=== PATIENT | male | born 1935 | race Caucasian/White ===

== ENCOUNTER → 2019-07-16 08:54 | Outpatient (REF) | payer MEDICARE, OTHER, SELFPAY | LOC: ANHLAB 08:54 | PROVIDERS: PCP Family Medicine; Visit Provider Nurse Practitioner | DX: C44.319 Basal cell carcinoma of skin of other parts of face (principal); C44.329 Squamous cell carcinoma of skin of other parts of face; D23.72 Other benign neoplasm of skin of left lower limb, including hip | CPT/HCPCS: 88305 ==

== ENCOUNTER → 2019-08-12 07:10 | Outpatient (REF) | payer MEDICARE, OTHER, SELFPAY | LOC: ANHLAB 07:10 | PROVIDERS: PCP Family Medicine; Visit Provider Nurse Practitioner | DX: C44.41 Basal cell carcinoma of skin of scalp and neck (principal); C44.329 Squamous cell carcinoma of skin of other parts of face | CPT/HCPCS: 88305; 88331 ==

== ENCOUNTER → 2020-01-14 08:25 | Outpatient (REF) | payer MEDICARE, OTHER, SELFPAY | LOC: ANHLAB 08:25 | PROVIDERS: PCP Family Medicine; Visit Provider Nurse Practitioner | DX: C44.329 Squamous cell carcinoma of skin of other parts of face (principal) | CPT/HCPCS: 88305 ==

== ENCOUNTER 2020-02-20 08:38 | Outpatient (CLI) | payer MEDICARE, OTHER, SELFPAY ==
--- NOTE | ~2020-02-20 | CT_ITS ---
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 The mA wa s adjusted according to patient size. Iterative reconstruction technique was employed. Exam dose: 12 10.66 mGy-cm total exam DLP. COMPARISON: 09/16/[address] brain FINDINGS: Vertebrobasilar calcification and tortuosity. Prominent bilateral carotid siphon internal c arotid artery calcifications. There is nonspecific diminished attenuation of the subcortical and periventricular cerebral white mat ter, likely due to chronic small vessel ischemic changes. There is moderately prominent cerebellar and central and cortical cerebral atrophy. No intracranial mass lesion or hemorrhage, midline shift or mass effect is evident. No cerebrovascula r accident is detected. No subdural or epidural hematoma is detected. The orbital contents are unremarkable. No fracture or bone destruction of the cranial vault. The mastoid air cells and included paranasal sinuses are unremarkable. IMPRESSION: Cerebral atherosclerosis and chronic small vessel ischemic changes of the cerebral white matter No acute intracranial finding Reviewed, dictated and finalized at Location A. Reviewed, dictated and finalized at location B. 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
--- NOTE | ~2020-02-20 | CT_ITS ---
EXAMINATION: CT soft tissue neck w con DATE: 02/20/2020 09:19 INDICATION: Squamous cell carcinoma of skin of other parts of face. TECHNIQUE: Computed tomography (CT) of the neck was performed with 75 mL Omnipaque-350 intravenous co ntrast. Automated exposure control and iterative reconstruction technique were employed. The dose-chip gth product was 630.60 mGy-cm. COMPARISON: Maxillofacial CT 09/16/2016 FINDINGS: The orbits are normal. There is skin thickening anterior to the left ear. There is a 2.2 x 1.6 cm mass in superficial left parotid gland with strands of soft tissue connecting to the skin lesi on. There is plaque in the proximal internal carotid arteries with less than 50% stenosis relative to normal distal artery lumen diameters. There is mild mucosal thickening in right maxillary sinus. The re is severe cervical spondylosis. There is mild scarring at the lung apices. A calcified right lung nodule is consistent with old granulomatous disease. IMPRESSION: 1. Skin thickening anterior to the left ear, consistent with squamous cell carcinoma and surgical peggy nges. 2. Left parotid mass, new from 09/16/2016, consistent with perineural spread of tumor versus nicki met astatic disease. Reviewed, dictated and finalized at location A. Y HUSBANDMAN IMPRESSION: 1. Skin thickening anterior to the left ear, consistent with squamous cell carc inoma and surgical changes. 2. Left parotid mass, new from 09/16/2016, consistent with perineural spread of tumor versus nicki metastatic disease.
[2020-02-20 09:08] LABS: Estimated Glomerular Filt Rate 45
== END 2020-02-20 08:39 | disposition home or self-care (01) ==
PROVIDERS: PCP Family Medicine; Visit Provider Surgery Plastic and Reconstructive Surgery
DX: C44.329 Squamous cell carcinoma of skin of other parts of face (principal); I67.2 Cerebral atherosclerosis
CPT/HCPCS: 70470; 70491; Q9967

== ENCOUNTER → 2020-11-10 08:31 | Outpatient (REF) | payer MEDICARE, OTHER, SELFPAY | LOC: ANHLAB 08:31 | PROVIDERS: PCP Family Medicine; Visit Provider Nurse Practitioner | DX: L85.9 Epidermal thickening, unspecified (principal) | CPT/HCPCS: 88305 ==

== ENCOUNTER → 2020-11-30 10:20 | Outpatient (REF) | payer MEDICARE, OTHER, SELFPAY | LOC: ANHLAB 10:20 | PROVIDERS: PCP Family Medicine; Visit Provider Nurse Practitioner | DX: C44.42 Squamous cell carcinoma of skin of scalp and neck (principal) | CPT/HCPCS: 88305; 88331 ==

== ENCOUNTER → 2021-04-15 14:11 | Outpatient (REF) | payer MEDICARE, OTHER, SELFPAY | LOC: ANHLAB 14:11 | PROVIDERS: PCP Family Medicine; Visit Provider Nurse Practitioner | DX: C44.41 Basal cell carcinoma of skin of scalp and neck (principal); C44.229 Squamous cell carcinoma of skin of left ear and external auricular canal; D04.4 Carcinoma in situ of skin of scalp and neck | CPT/HCPCS: 88305 ==

== ENCOUNTER → 2021-05-17 07:40 | Outpatient (REF) | payer MEDICARE, OTHER, SELFPAY | LOC: ANHLAB 07:40 | PROVIDERS: PCP Family Medicine; Visit Provider Nurse Practitioner | DX: C44.41 Basal cell carcinoma of skin of scalp and neck (principal); C44.229 Squamous cell carcinoma of skin of left ear and external auricular canal; C44.42 Squamous cell carcinoma of skin of scalp and neck; C44.219 Basal cell carcinoma of skin of left ear and external auricular canal | CPT/HCPCS: 88305; 88331 ==

== ENCOUNTER → 2021-07-13 08:42 | Outpatient (REF) | payer MEDICARE, OTHER, SELFPAY | LOC: ANHLAB 08:42 | PROVIDERS: PCP Family Medicine; Visit Provider Nurse Practitioner | DX: C44.42 Squamous cell carcinoma of skin of scalp and neck (principal) | CPT/HCPCS: 88305 ==

== ENCOUNTER → 2021-08-09 10:29 | Outpatient (REF) | payer MEDICARE, OTHER, SELFPAY | LOC: ANHLAB 10:29 | PROVIDERS: PCP Family Medicine; Visit Provider Nurse Practitioner | DX: C44.42 Squamous cell carcinoma of skin of scalp and neck (principal) | CPT/HCPCS: 88305; 88331 ==

== ENCOUNTER 2021-11-09 13:00 | Outpatient (NON) | payer MEDICARE, OTHER, SELFPAY | END 2021-11-09 13:01 | disposition home or self-care (01) | LOC: ANHLAB 11-11 07:30 | PROVIDERS: PCP Family Medicine; Visit Provider Nurse Practitioner | DX: D04.4 Carcinoma in situ of skin of scalp and neck (principal) | CPT/HCPCS: 88305 ==

== ENCOUNTER 2021-12-20 14:49 | Outpatient (NON) | payer MEDICARE, OTHER, SELFPAY | END 2021-12-20 14:50 | disposition home or self-care (01) | LOC: ANHLAB 12-27 14:50 | PROVIDERS: PCP Family Medicine; Visit Provider Nurse Practitioner | DX: C44.42 Squamous cell carcinoma of skin of scalp and neck (principal) | CPT/HCPCS: 88305; 88331 ==

== ENCOUNTER 2022-02-22 08:00 | Outpatient (NON) | payer MEDICARE, OTHER, SELFPAY | END 2022-02-22 08:01 | disposition home or self-care (01) | LOC: ANHLAB 02-23 13:22 | PROVIDERS: PCP Family Medicine; Visit Provider Nurse Practitioner | DX: C44.42 Squamous cell carcinoma of skin of scalp and neck (principal) | CPT/HCPCS: 88305 ==

== ENCOUNTER 2022-03-14 13:31 | Outpatient (NON) | payer MEDICARE, OTHER, SELFPAY | END 2022-03-14 13:32 | disposition home or self-care (01) | LOC: ANHLAB 13:32 | PROVIDERS: PCP Family Medicine; Visit Provider Nurse Practitioner | DX: C44.92 Squamous cell carcinoma of skin, unspecified (principal); C44.42 Squamous cell carcinoma of skin of scalp and neck | CPT/HCPCS: 88305; 88331; 88332 ==

== ENCOUNTER 2022-05-26 08:00 | Outpatient (NON) | payer MEDICARE, OTHER, SELFPAY | END 2022-05-26 08:01 | disposition home or self-care (01) | LOC: ANHLAB 05-27 11:34 | PROVIDERS: PCP Family Medicine; Visit Provider Nurse Practitioner | DX: C44.42 Squamous cell carcinoma of skin of scalp and neck (principal) | CPT/HCPCS: 88305 ==

== ENCOUNTER 2023-03-14 14:21 | Outpatient (NON) | payer MEDICARE, OTHER, SELFPAY | END 2023-03-14 14:22 | disposition home or self-care (01) | LOC: ANHLAB 03-15 14:24 | PROVIDERS: PCP Family Medicine; Visit Provider Nurse Practitioner | DX: C44.329 Squamous cell carcinoma of skin of other parts of face (principal) | CPT/HCPCS: 88305 ==

== ENCOUNTER 2025-02-03 11:00 | Emergency (ER) | payer MEDICARE, OTHER, SELFPAY ==
--- NOTE | ~2025-02-03 | CT_ITS ---
CT CERVICAL SPINE WITHOUT CONTRAST CLINICAL HISTORY: fall Technique: Axial images thoracic inlet to skull base Sagittal and coronal reformats. No contrast CT images acquired with automatic exposure control for dose reduction DLP: 326 mGy-cm Comparison: None Findings: No acute fracture or listhesis. Vertebral bodies normal height and alignment. Moderate degenerative changes. Disc spaces maintained. Prevertebral soft tissues within normal limits. Visualized lung apices: Clear. Visualized thyroid: Unremarkable. No enlarged cervical nodes. IMPRESSION: 1. No acute findings. Reviewed, dictated and finalized at location [facility]. [facility] IMPRESSION: 1. No acute findings.
--- NOTE | ~2025-02-03 | CT_ITS ---
CT HEAD NON-CONTRAST Clinical History: fall Comparison: 02/20/2020 Technique: Unenhanced axial images skull base to vertex Coronal, sagittal reformats CT images acquired with automatic exposure control for dose reduction DLP: 681 mGy-cm Findings: Age-related atrophy. Chronic white matter microvascular ischemic changes. Sulci, ventricles: Unremarkable. No intracerebral hemorrhage. No evidence acute territorial infarct. No mass effect, midline shift. Bony calvarium intact. Visualized paranasal sinuses: Clear. Mastoid air cells: Fluid left side. IMPRESSION: 1. No acute intracranial findings. Reviewed, dictated and finalized at location [facility]. [facility]
[2025-02-03 10:59] VITALS: BP 160/58; PULSE 56; RESP 21; TEMP 36.4; O2SAT 93
--- NOTE | 2025-02-03 12:58 | ED.FALL ---
HPI - Fall General Chief Complaint: Fall Stated Complaint: fall Time Seen by Provider: 02/03/25 11:42 History of Present Illness HPI Narrative: Patient presenting here after he tripped on a mat at a grocery store and fell, he is on blood thinners. No LOC, denies any complaints. Related Data Home Medications ?Medication ?Instructions ?Recorded ?Confirmed ?Last Taken ?Type simvastatin 20 mg tablet 20 mg PO DAILY 03/26/19 02/21/24 Unknown History cholecalciferol (vitamin D3) 50 50 mcg PO DAILY 04/14/20 02/21/24 Unknown History mcg (2,000 unit) capsule Allergies Allergy/AdvReac Type Severity Reaction Status Date / Time No Known Allergies Allergy Verified 08/13/24 08:35 Review of Systems Review of Systems: All systems reviewed & are unremarkable except as noted in HPI and below PMFSH Past Medical History Medical History Absence of cataract of right eye Absence of cataract of left eye Squamous cell carcinoma of parotid Chronic renal insufficiency, stage III (moderate) Hyperlipidemia, unspecified Mixed hyperlipidemia Paroxysmal atrial fibrillation 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 Surgical History Surgical History H/O abdominal aortic aneurysm repair Family History Family History Other Family history of Alzheimer's disease Social History Social History Smoking status: Never smoker Second hand tobacco smoke exposure: No Alcohol intake: never Substance use: never Substance use type: does not use Lack of Transportation: No Lack of Food: Never True Current Housing: I Do Not Have Housing Concerned About Future Housing: No Difficulty Paying Gas/Electric Bills: No Difficulty Paying for Meds: No Currently Unemployed: No Education: Master's Degree or Higher Difficulty w/ Childcare or Family Care: No Living arrangements: with family Occupation/Education: retired Gender identity (if verbalized by the patient): Male Spiritual care concerns: No Agree to blood products: Yes Exam Narrative: EXAMINATION OF ORGAN SYSTEMS/BODY AREAS: Constitutional: Vital signs per nursing GENERAL:[No acute distress, non-toxic appearing.] HEAD: Abrasions with very tiny superficial laceration above right eyebrow EYES: EOMI, conjunctiva normal ENT: Hearing grossly intact LUNGS: Nonlabored breathing. HEART: [Regular rate and rhythm] ABD: [Soft], [nontender to palpation] EXT: Normal range of motion SKIN: Facial abrasions with very tiny superficial laceration above right eyebrow NEURO: [Alert and oriented x 3. No gross focal sensory or strength deficits.] PSYCH: Normal affect Course Vital Signs Vital signs: Vital Signs Temperature 97.6 F 02/03/25 10:59 Pulse Rate 56 L 02/03/25 10:59 Respiratory Rate 21 H 02/03/25 10:59 Blood Pressure 160/58 H 02/03/25 10:59 Pulse Oximetry 93 02/03/25 10:59 Oxygen Delivery Room Air 02/03/25 10:59 Temperature 97.6 F 02/03/25 10:59 Pulse Rate 56 L 02/03/25 10:59 Respiratory Rate 21 H 02/03/25 10:59 Blood Pressure 160/58 H 02/03/25 10:59 Pulse Oximetry 93 02/03/25 10:59 Oxygen Delivery Room Air 02/03/25 10:59 Procedures Laceration Laceration 1: Date: 02/03/25 Time: 12:59 Site: face Side (If applicable): right Size (cm): 1 Description: linear Depth: simple, single layer Pre-repair: wound explored, irrigated and deep structures intact ====== Skin Level ====== Skin layer closed with: dermabond ====== Subcutaneous Layer ====== ====== Muscle Layer ====== ====== Tendon Layer ====== Laceration 2: Date: 02/03/25 Time: 13:02 Site: face Side (If applicable): right Size (cm): 1 Description: linear Depth: simple, single layer Pre-repair: wound explored, irrigated and deep structures intact ====== Skin Level ====== Skin layer closed with: dermabond ====== Subcutaneous Layer ====== ====== Muscle Layer ====== ====== Tendon Layer ====== MDM - Fall MDM Narrative Medical decision making narrative: Patient presents here after falling, hitting his head, he is on blood thinners. On exam he does have abrasions to his right forehead, with a couple of tiny lacerations. This is irrigated, closed, patient tolerated this well, stable for discharge with return precautions Discharge Plan Discharge Clinical Impression: Fall, Head injury Patient Disposition: Home Condition: Stable Instructions: Head Injury (ED), Skin Adhesive Care (ED) Additional Instructions: You can follow up with your PCP and come back to the ER for any further issues. Patient Language: Indonesian Prescriptions: No Action simvastatin 20 mg tablet 20 mg PO DAILY cholecalciferol (vitamin D3) 50 mcg (2,000 unit) capsule 50 mcg PO DAILY Eliquis 5 mg tablet 5 mg PO BID Qty: 180 3RF metoprolol succinate 25 mg tablet extended release 24 hr 25 mg PO DAILY Qty: 90 3RF Follow-up/Referrals: Jean Carlos Bennett MD [Primary Care Provider, Family Practice]
[2025-02-03] MEDS: TETANUS,DIPHTHERIA,AC PERTUSSIS ADULT (0.5 ML) BOOSTRIX IM (13:06)
--- OUTSIDE RECORDS SUMMARY | 2025-02-03 13:40 | XMS_ITS | Clinical Summary ---
Author Organization [facility] Address [address] [place] [address] Care Team Providers Care Laborer Laboratory Name Role Phone Christine Sanford MD Primary Care Provider [phone] Source Comments [facility],non-owned Affiliates and Associated Physician Practices is amultiple site organization consisting of ambulatory clinics and hospital sitesin [place], [place], [place] and [place]. This disclosure is being madepursuant to the Care Everywhere program and may not contain all information available regarding this patient. 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 Gender Identity Not on file Sexual Orientation Not on file Last Filed Vital Signs Vital Sign Reading Time Taken Comments Blood Pressure - - Pulse - - Temperature - - Respiratory Rate - - Oxygen Saturation - - Inhaled Oxygen Concentration - - Weight 90.7 kg (200 lb) 04/08/2010 9:00 AM 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 Height 185.4 cm (6' 1) 04/08/2010 9:00 AM 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 Body Mass Index 26.39 04/08/2010 9:00 AM 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 Plan of Treatment Health Maintenance Due Date Last Done Comments MEDICARE AWV 12 MONTHS 1936 DTAP/TDAP/TD VACCINES (1 - Tdap) 05/25/1955 PNEUMOCOCCAL VACCINE 50+ (1 of 1 - PCV) 1986 ZOSTER VACCINE (1 of 2) 1986 Respiratory Syncytial Virus (RSV) Vaccine Pt: or over 60 yrs (1 - 1-dose 75+ series) 05/25/2011 DEPRESSION SCREENING 03/06/2024 COVID-19 VACCINE (2024-2 6 season) 2024 INFLUENZA VACCINE (#1) 2024 HEPATITIS B VACCINE Aged Out No longe r eligible based on patient's age to complete this topic HIB VACCINE Aged Out No longer eligi ble based on patient's age to complete this topic HPV VACCINE Aged Out No longer eligi ble based on patient's age to complete this topic MENINGOCOCCAL (Group B) VACC INE SHARED DECISION-MAKING Aged Out No longer eligibl e based on patient's age to complete this topic MENINGOCOCCAL GROUPS A/C/Y/W VACCINE Aged Out No longer eligible b ased on patient's age to complete this topic Insurance MEDICARE AETNA MEDICARE AETNA Care Teams Laborer Laboratory Relationship Specialty Start Date End Date Christine Sanford MD [address] [place] [address] PCP - General 04/05/10
--- OUTSIDE RECORDS SUMMARY | 2025-02-03 13:40 | XMS_ITS | Encounter Summary ---
Author Organization [facility] Address [address] [place] [address] Care Team Providers Care Agent Based Modeler Name Role Phone Christine Sanford MD Primary Care Provider [phone] Jon Abbott MD Unavailable [phone] Solomon Varner MD Unavailable [phone] Richy Benjamin MD PhD Unavailable [phone] [facility] MD Unavailable [phone] Christine Hennessy LPN Unavailable Unavailab Sharlene Mcgraw MD Unavailable [phone] Too Harrell MD Unavailable [phone] Encounter Details Date Type Department Care Team (Late st Contact Info) Description 03/17/[address] [address] Eri Ray RN Social History Tobacco Use Types Packs/Day Years Used Date Smoking Tobacco: Former Cigarettes 1 [phone] - 7200 Smokeless Tobacco: Never Alcohol Use Standard Drinks/Week Comments Yes 2 (1 standard drink = 0.6 oz pur e alcohol) Sex and Gender Information Value Date Recorded Sex Assigned at Not on file Legal Sex Male 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 Gender Identity Not on file Sexual Orientation Not on file documented as of this encounter Functional Status * Question Answer Date of Assessment Author Arterial Line BP 97/80 03/17/2020 7:10 PM DRYWALL STRIPPER Kosta Lord RN * Green Fall Risk Question Answer Date of Assessment Author History of Falling 0 03/17/2020 9:00 PM Eri Hammond RN Secondary Diagnosis 15 03/17/2020 9:00 PM Eri Moe RN Ambulatory Aids 0 03/17/2020 9:00 PM Eri Aaron RN Intravenous Therapy/Heparin/Saline Lock 20 03/17/2020 9:00 PM Eri Hammond RN Gait/Transferring 0 03/17/2020 9:00 PM Eri Hammond RN Mental Status 0 03/17/2020 9:00 PM Eri Muñoz RN Auto Low/High - if selected proceed to interventions (retired) Low risk-patient immobile/non-ambula tory or infant 03/17/2020 11:35 AM Shilpa Aviles RN Morse Fall Risk Score (Score >= 45 places fall precaution order) 35 03/17/2020 9:00 PM Eri Hammond RN * Manuel Scale Question Answer Date of Assessment Author Sensory Perceptions 3 03/18/2020 7:40 AM Norma Randolph RN Moisture 4 03/18/2020 7:40 AM Norma Sam RN Activity 3 03/18/2020 7:40 AM Norma Sam RN Mobility 3 03/18/2020 7:40 AM Norma Sam RN Nutrition 3 03/18/2020 7:40 AM Norma Sam RN Friction and Shear 3 03/18/2020 7:40 AM Norma Sam RN Manuel Scale Score 19 03/18/2020 7:40 AM Norma Sam RN * Question Answer Date of Assessment Author BP Location Left arm 03/18/2020 11:53 AM Traci Osullivan BP Method Automatic 03/18/2020 11:53 AM Traci Osullivan MAP (mmHg) 52 03/18/2020 11:53 AM Traci Osullivan * Question Answer Date of Assessment Author Arterial Line MAP (mmHg) 87 03/17/2020 7:10 PM Kosta Helm RN * Fall Risk Interventions Question Answer Date of Assessment Author All Low Fall Interventions Applied Yes 03/17/2020 9:00 PM Eri Hammond RN All Moderate Fall Interventions Applied Yes 03/17/2020 9:00 PM Eri Hammond, R N All High Fall Risk Interventions Applied No 03/17/2020 9:00 PM Eri Hammond R N All High Risk Interventions EXCEPT: Bed alarm;Chair alarm 03/17/2020 9:00 PM Eri Hammond RN Additional Interventions Applied Over-bed table on non-exit side 03/17/2020 9:00 PM Eri Hammond RN Reason For Exception(s) uses call light 03/17/2020 9:0 0 PM Eri Hammond RN * Pressure Injury Prevention Question Answer Date of Assessment Author Pressure Ulcer Prevention Interventions Keep skin clean and dry (Sensory Perception/Moisture ) 03/18/2020 7:40 AM Norma Sam RN * Integumentary Question Answer Date of Assessment Author Skin Color Appropriate for ethnicity 03/18/2020 7:40 AM Norma Sam RN Skin Condition/Temp Warm;Dry 03/18/2020 7 :40 AM Norma Sam RN Skin Integrity Surgical incision 03/18/2020 7:4 0 AM Norma Sam RN Skin Turgor Non-tenting 03/17/2020 9:00 PM Eri Hammond RN Integumentary Additional Assessments Yes-Manuel 03/17/2020 9:00 PM Eri Hammond RN Integumentary (WDL) X 03/18/2020 7 :40 AM Norma Sam RN Skin Location L neck/face 03/18/2020 7:40 AM Norma Sam RN * Manuel Scale Question Answer Date of Assessment Author Manuel Scale Used Manuel 03/17/2020 11:35 AM Shilpa Aviles RN * Question Answer Date of Assessment Author Facial Edema No pitting 03/17/2020 9:00 PM Eri Saavedra RN Edema Facial 03/17/2020 9:00 PM Eri Saavedra RN * Question Answer Date of Assessment Author BP Location Left arm 03/18/2020 11:53 AM Traci Osullivan BP Method Automatic 03/18/2020 11:53 AM Traci Osullivan * Question Answer Date of Assessment Author Bed In Lowest Position Yes 03/18/2020 1:00 PM Yadira Molina Bed Wheels Locked Yes 03/18/2020 1:00 PM Yadira Molina * Fall Risk Interventions Question Answer Date of Assessment Author All Low Fall Interventions Applied Yes 03/17/2020 9:00 PM Eri Hammond RN All Moderate Fall Interventions Applied Yes 03/17/2020 9:00 PM Eri Hammond R N All High Fall Risk Interventions Applied No 03/17/2020 9:00 PM Eri Hammond R N All High Risk Interventions EXCEPT: Bed alarm;Chair alarm 03/17/2020 9:00 PM Eri Hammond RN Additional Interventions Applied Over-bed table on non-exit side 03/17/2020 9:00 PM Eri Hammond RN Reason For Exception(s) uses call light 03/17/2020 9:0 0 PM Eri Hammond RN * Question Answer Date of Assessment Author Hygiene Bathed/showered with chlorhexidine gluconate (CHG) 03/18/2020 9:00 AM Yadira Molina Hygiene Level of Assistance Independent 03/18/2020 9:00 AM Yadira Molina * ADL Screening Question Answer Date of Assessment Author Patient's Vision Adequate to Safely Complete Daily Activities Yes 03/17/2020 9:00 PM Eri Muñoz RN Patient's Judgement Adequate to Safely Complete Daily Activities Yes 03/17/2020 9:00 PM Eri Muñoz RN Patient's Memory Adequate to Safely Complete Daily Activities Yes 03/17/2020 9:00 PM Eri Muñoz RN Patient Able to Express Needs/Desires Yes 03/17/2020 9:00 PM Eri Hammond RN Dressing Independent 03/17/2020 9:00 PM Eri Saavedra RN Grooming Independent 03/17/2020 9:00 PM Eri Saavedra RN Feeding Independent 03/17/2020 9:00 PM Eri Saavedra RN Bathing Independent 03/17/2020 9:00 PM Eri Saavedra RN Toileting Independent 03/17/2020 9:00 PM Eri Saavedra RN In/Out Bed Independent 03/17/2020 9:00 PM Eri Saavedra RN Walks in Home Independent 03/17/2020 9:00 PM Eri Muñoz RN Weakness of Legs None 03/17/2020 9:00 PM Eri Pierson RN Weakness of Arms/Hands None 03/17/2020 9:00 PM Eri Hammond RN Hearing - Right Ear Functional 03/17/2020 9:00 PM CS T Eri Ray RN Hearing - Left Ear Functional 03/17/2020 9:00 PM Eri Hammond RN Dominant hand? Right 03/17/2020 9:00 PM Eri Rios RN Decline in ADLs in last 2 weeks? No 03/17/19 21 9:00 PM Eri Hammond RN * Therapy Consults Question Answer Date of Assessment Author PT Evaluation Needed 2 03/17/2020 9:00 PM Eri Ortiz RN OT Evaluation Needed 2 03/17/2020 9:00 PM Eri Ortiz RN BURRING MACHINE OPERATOR Evaluation Needed 2 03/17/2020 9:00 PM Eri Hammond RN * Assistive Devices Question Answer Date of Assessment Author Assistive Devices/DME Dentures upper;Den tures lower 03/17/2020 9:00 PM Eri Hammond RN documented as of this encounter Mental Status * Question Answer Entry Date Author Level of Consciousness Alert 7:40 AM Norma Sam RN Orientation Oriented X4 (person, place, time, situation) 03/18/2020 7:40 AM Norma Sam RN Neuro (WDL) WDL 03/18/2020 7:40 AM DRYWALL STRIPPER Norma Calderon RN * Question Answer Entry Date Author Neuro (WDL) X 03/17/2020 7:00 PM DRYWALL STRIPPER [place] [employer], Kosta Kee, BURT documented in this encounter Plan of Treatment Not on file documented as of this encounter Visit Diagnoses Not on filedocumented in this encounter Care Teams Agent Based Modeler Relationship Specialty Start Date End Date Christine aSnford MD PCP - General 08/28/14 Jon Abbott MD Consulting Physician Otolaryngology 03/28/20 10/02/21 Solomon Varner MD Consulting Physician Cardiology 04/01/20 Richy Benjamin MD PhD Consulting Physician Radiation Oncology 04/15/20 [facility] [address] [place] [address] Sand Blaster Plastic Surgery 12/08/21 Christine Hennessy LPN [address] [place] [address] [place] [address] Sand Blaster Plastic Surgery 12/08/21 Sharlene Gleason MD [address] [place] [address] Referring Physician Dermatology 06/05/23 Too Harrell MD [address] [place] [address] Referring Physician Dermatology 06/26/23 documented as of this encounter
--- OUTSIDE RECORDS SUMMARY | 2025-02-03 13:40 | XMS_ITS ---
Author Organization [facility] [address] Address [address] [place] [address] Care Team Providers Care Financial Assistance Specialist Name Role Phone Christine Sanford MD Primary Care Provider [phone] Solomon Varner MD Unavailable Richy Benjamin MD PhD Unavailable [phone] [facility] Unavailable [phone] Christine Hennessy LPN Unavailable Unavailab Sharlene Mcgraw MD Unavailable [phone] Too Harrell MD Unavailable [phone] Active Problems Problem Noted Date Diagnosed Date Stage 3b chronic kidney disease 12/31/2024 VIPUL (acute kidney injury) 03/29/2023 Squamous cell carcinoma, scalp/neck 07/04/2022 Nonrheumatic tricuspid valve regurgitation 02/22 Mixed hyperlipidemia 08/18/2021 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 04/17/2020 Mixed conductive and sensori neural hearing loss of left ear with restricted hearing of right ear 04/17/2020 Squamous cell carcinoma, face 03/31/2020 Overview (03/31/2020): Added automatically from request for surgery [id number] 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, pN3(U), cM0) - Signed by Richy Benjamin MD PhD on 03/27/2020 Mass of neck 03/02/2020 Overview (03/02/2020): Added automatically from request for surgery [id number] 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 S/P AAA repair using straight graft 07/04/2016 Overview (07/29/2016): S/P repair of abdominal aortic aneurysm using straight graft Chronic kidney disease, stage 2 (mild) 7 Overview (07/29/2016): CKD (chronic kidney disease) stage 2, GFR 60-89 ml/min Nonrheumatic mitral valve regurgitation 10/30/19 16 Overview (06/10/2016): Non-rheumatic mitral regurgitation Pulmonary hypertension 10/30/2015 Overview (06/10/2016): Pulmonary HTN Chronic atrial fibrillation 10/30/2015 Overview (06/10/2016): Chronic atrial fibrillation Chronic anticoagulation 10/30/2015 Overview (06/10/2016): Chronic anticoagulation Current Treatment and Therapy Plans No current plan information found. Past Treatment and Therapy Plans Oncology Chemotherapy Treatment Plan Name Start Date Discontinue Date Treatment Medications Discontinue Reason Plan Provider Cycles Pembrolizumab 21 Day Cycles 07/08/2022 07/30/2024 pembrolizumab (KEYTRUDA)pembr olizumab (KEYTRUDA) IVPB in 100 mL Therapy Complete Asael Reese MD 30 of 30 cycles started Radiation Treatments * Course [id number]/04/2020 - 06/16/2020 Treatment Period Energy Fraction Dose Fractions Total Dose Plans Planned LT HEAD_NECK 05/04/2020 - 06/16/2020 200 32 / 6,600 Reference Points Delivered [id number] 05/04/2020 - 06/16/2020 6,400 Lifetime Dose Tracking * Chemical Lifetime Dose Automatic Entry Manual Entr y DLP 18,013 mGycm 18,013 mGycm 0 mGycm Resolved Problems Problem Noted Date Diagnosed Date Resolved Date Dyslipidemia 10/30/2015 08/18/2021 Overview (06/10/2016): Dyslipidemia
--- OUTSIDE RECORDS SUMMARY | 2025-02-03 13:40 | XMS_ITS | Clinical Summary ---
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 Name Role Phone Christine Sanford MD Primary Care Provider [phone] Solomon Varner MD Unavailable Richy Benjamin MD PhD Unavailable [phone] [facility] Unavailable [phone] Christine Hennessy LPN Unavailable Unavailab Sharlene Mcgraw MD Unavailable [phone] Too Harrell MD Unavailable [phone] Allergies No known active allergies Medications cholecalciferol (VITAMIN D-3) 1,000 unitIndications :supplement Take 1 tablet/capsu le (1,000 Units total) by mouth every morning Active metoprolol XL (TOPROL-XL) 25 mg extended release tablet Take 1 tablet (25 mg total) by mouth daily 03/17/2022 Active apixaban (Eliquis) 5 mg tablet Take 1 tablet (5 mg total) by mouth 2 (two) times a day 180 tablet 3 01/09/2024 Active simvastatin (ZOCOR) 20 mg tablet TAKE 1 TABLET BY MOUTH EVERY DAY AT NIGHT 90 tablet 3 11/07/2024 Active Active Problems Problem Noted Date Diagnosed Date [...] (03/31/2020): Added automatically from request for surgery [id number] 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, pN3(U), cM0) - Signed by Richy Benjamin MD PhD on 03/27/2020 Mass of neck 03/02/2020 Overview (03/02/2020): Added automatically from request for surgery [id number] 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 [...] Chronic anticoagulation 10/30/2015 Overview (06/10/2016): Chronic anticoagulation Resolved Problems Problem Noted Date Diagnosed Date Resolved Date Dyslipidemia 10/30/2015 08/18/2021 Overview (06/10/2016): Dyslipidemia Encounters Date Type Department Care Team Description 12/31/2024 12:00 PM CDT Office Visit [facility] [address] [place] [address] Floor 5 [place] [address] Bruno Tse MD Squamous cell carcinoma, scalp/neck (Primary Dx); Stage 3b chronic kidney disease (HCC); Pulmonary hypertension (HCC) 12/24/2024 Orders Only [facility] Scanning, Provider 12/23/2024 9:00 AM CDT [facility] [address] [place] [address] 6 [place] [address] Asael Reese MD Cancer of parotid gland (HCC); Squamous cell carcinoma, face; Squamous cell carcinoma of head and neck 12/23/2024 8:15 AM CDT Lab [facility] - [facility] [address] [place] [address] 6 [place] [address] Cancer of parotid gland (HCC); Squamous cell carcinoma of head and neck 12/23/2024 8:00 AM CDT Lab [facility] [address] [place] [phone] Cancer of parotid gland (HCC); Squamous cell carcinoma of head and neck 12/23/2024 Telephone [facility] [address] [place] [address] 6 [place] [address] Brittani Hernandez RN 12/18/2024 Telephone [facility] [address] [place] [address] 5 [place] [address] Michelle Key RN 12/12/2024 10:59 AM CDT - 12/12/2024 11:59 PM CDT Hospital Encounter [facility] [place] [address] [facility] [place] 8 [place] [address] Cancer of parotid gland (HCC); Squamous cell carcinoma of head and neck Discharge Disposition: Discharge to home or self care 12/12/2024 10:45 AM CDT - 12/12/2024 11:59 PM CDT Hospital Encounter [facility] [place] [address] [facility] 8 [place] [address] Cancer of parotid gland (HCC); Squamous cell carcinoma, face; Squamous cell carcinoma of head and neck Discharge Disposition: Discharge to home or self care 12/10/2024 Telephone [facility] [address] [place] [address] Sophie Irwin MS from Last 3 Months Immunizations Immunization Administration Dates Next Due Influenza, Quad, Adjuvantate d, Intramuscular 11/13/2019 Influenza, Quadrivalent, Hig h Dose, Preservative Free, Intrr 11/03/2020 Influenza, Trivalent, High D ose, Split, Preservative Free, Intramuscular 11/12/2018,12/04/2017,12/03/2017,12/05,11/29/2015,11/17/2014 Influenza, Trivalent, IM (MDV) 12/18/2021,2020,11/13/2019 Pfizer SARS-CoV-2 Monovalent Vaccination (12+ Yrs) PURPLE 12/04/2020,05/01/2020,04/10/2020 Pneumococcal Conjugate 7-Valent 11/12/2018 Pneumococcal Conjugate PCV 13 06/26/2015 Pneumococcal Polysaccharide PPV23 06/16/2016 Tdap 09/16/2016 Surgical History Surgery Date Site/Laterality Comments OTHER SURGICAL HISTORY Aortic Aneurysm Repair, AAA Endograft CARDIAC STENT PLACEMENT Aortic stent NOSE SURGERY COLONOSCOPY Medical History Medical History Date Comments Hypercholesterolemia High choles terol Hx Other Medical Chronic atrial fibrillation Hx Other Medical Abdominal Aorti c Aneurysm Hx Other Medical BPH- pt straigh t caths Cancer (HCC) 2000 A-fib (HCC) Skin cancer Family History Medical History Relation Name Comments No Known Problems Father No Known Problems Mother Relation Name Status Comments Father Mother Social History Tobacco Use Types Packs/Day Years Used Date Smoking Tobacco: Former Cigarettes 1 955 - 4898 Smokeless Tobacco: Never Tobacco Cessation:Counseling Given: Not Answered Alcohol Use Standard Drinks/Week Comments Yes 2 (1 standard drink = 0.6 oz pur e alcohol) Sex and Gender Information Value Date Recorded Sex Assigned at Not on file Legal Sex Male 12:09 AM [employer] O[employer] Gender Identity Not on file Sexual Orientation Not on file Last Filed Vital Signs Vital Sign Reading Time Taken Comments Blood Pressure 90/57 12/23/2024 8:50 AM CDT Pulse 56 12/23/2024 8:50 AM CDT Temperature 36.3 C (97.3 F) 12/23/2024 8:50 AM CDT Respiratory Rate 18 12/23/2024 8:50 AM CDT Oxygen Saturation 93% 12/23/2024 8:50 AM CDT Inhaled Oxygen Concentration - - Weight 88.5 kg (195 lb 3.2 oz) 12/31/2024 11:36 AM CDT Height 182.9 cm (6') 10/14/2024 8:28 AM CDT Body Mass Index 26.47 10/14/2024 8:28 AM CDT Plan of Treatment Health Maintenance Due Date Last Done Comments Depression Screening 1936 Hepatitis B Screening 1953 Zoster Vaccine (1 of 2) 1986 Well Visit 65+ 2001 Fall Risk Assessment 04/03/2021 04/03/2020 Covid-19 Vaccine (2024-2 6 season) 2024 12/04/2020, 05/01/2020, 04/10/2020 DTaP/Tdap/Td Vaccine (2 - Td or Tdap) 09/16/2026 09/16/2016 Pneumococcal vaccine 65+ Completed 019, 06/16/2016, 06/26/2015 Influenza Vaccine Completed 12/20/2024, , 11/04/2020, Additional history exists Medical Devices Implanted Type Area Boiler Room Operator Device Identifier Shelf Expiration Date Model / Serial / Lot [employer] [id number] Berghaus/Schrom Chain Flexible Implant .8gm Eyelid [place] - [id number] Implanted:Qty: 1 on 04/03/2020 by Brittani Whitmore MD at [facility] Left: Eye [employer] [id number] / / Procedures Procedure Name Priority Date/Time Associated Diagnosis Comments SCAN - PATHOLOGY 12/24/2024 10:0 4 AM CDT EGFR Routine 12/23/2024 8:34 AM CDT 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 T4, FREE Routine 12/23/2024 8:34 AM CDT 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 DIFFERENTIAL AUTO Routine 12/23/2024 8:3 4 AM CDT 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 CBC WITH AUTO DIFFERENTIAL Routine 12/23/2024 8:34 AM CDT 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 COMPREHENSIVE METABOLIC PANEL Routine 12/23/2024 8:34 AM CDT 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 THYROID FUNCTION CASCADE Routine 12/23/2024 8:34 AM CDT 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 LACTATE DEHYDROGENASE Routine 12/23/2024 8:34 AM CDT 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 73 m2 Comment: Interpretive Data Reference Interval Normal >/= 90 mL/min/1.73m2 Mildly decreased* 60 - 89 mL/min/1.73m2 Mildly to moderately decreased 45 - 59 mL/min/1.73m2 Moderately to severely decreased 30 - 44 mL/min/1.73m2 Severely decreased 15 - 29 mL/min/1.73m2 Kidney Failure < 15 mL/min/1.73m2 *Relative to young adult level Estimated glomerular filtration rate is determined by the 2021 CKD-EPI equation recommended by the National Kidney Foundation (A Unifying Approach to GFR Estimation: Recommendations of the NKF-ASK Task Force on Reassessing the Inclusion of Race in Diagnosing Kidney Disease, JASN 2020). The CKD-EPI equation should not be used for patients with unstable renal function and has not been validated in children and those over 70. Current interpretive data was last reviewed 2021. Blood 12/23/2024 8:34 AM CDT 12/23/2024 8:45 AM CDT us Asael Reese MD LAB BLOOD ORDERABLES Final Res ult KARRI ACOSTA [facility] [place] [address] * (ABNORMAL) Differential, auto (12/23/2024 8:34 AM CDT) Neutrophil abs 5.85 1.50 - 6.50 K/cumm Comment:Testing performed by : [facility], [address] [place] [phone] Lymphocyte abs 1.23 0.80 - 3.30 K/cumm KARRI ACOSTA Comment:Testing performed by : [facility], [address] [place] [phone] Monocyte abs 0.84(H) 0.20 - 0.80 K/cumm KARRI BJ Comment:Testing performed by : [facility], [address] [place] [phone] Eosinophil abs 0.21 0.00 - 0.50 K/cumm CERSTEVE ACOSTA Comment:Testing performed by : [facility], [address] [place] [phone] Basophil abs 0.04 0.00 - 0.10 K/cumm CERSTEVE BJ Comment:Testing performed by : [facility], [address] [place] [phone] Neutrophil pct 71.6 % KARRI ACOSTA Comment: Interpretive Data Percent cell count reference ranges are not reported, since discordance with absolute values may lead to misinterpretation of CBC data. Current Interpretive Data was last revised on 2017. Testing performed by: [facility], [address] [place] [phone] Lymphocyte pct 15.0 % CERSTEVE BJ Comment: Interpretive Data Percent cell count reference ranges are not reported, since discordance with absolute values may lead to misinterpretation of CBC data. Current Interpretive Data was last revised on 2017. Testing performed by: [facility], [address] [place] [phone] Monocyte pct 10.3 % CERSTEVE ACOSTA Comment: Interpretive Data Percent cell count reference ranges are not reported, since discordance with absolute values may lead to misinterpretation of CBC data. Current Interpretive Data was last revised on 2017. Testing performed by: [facility], [address] [place] [phone] Eosinophil pct 2.6 % CERSETVE ACOSTA Comment: Interpretive Data Percent cell count reference ranges are not reported, since discordance with absolute values may lead to misinterpretation of CBC data. Current Interpretive Data was last revised on 2017. Testing performed by: [facility], [address] [place] [phone] Basophil pct 0.5 % CERSTEVE ACOSTA Comment: Interpretive Data Percent cell count reference ranges are not reported, since discordance with absolute values may lead to misinterpretation of CBC data. Current Interpretive Data was last revised on 2017. Testing performed by: [facility], [address] [place] [phone] Blood 12/23/2024 8:34 AM CDT 12/23/2024 8:43 AM CDT us Asael Reese MD LAB BLOOD ORDERABLES Final Res ult KARRI ACOSTA [facility] Department [place] [address] * (ABNORMAL) Thyroid Function Moore (12/23/2024 8:34 AM CDT) TSH 6.72(H) 0.30 - 4.20 mcIUnit/mL Blood 12/23/2024 8:34 AM CDT 12/23/2024 8:45 AM CDT us Asael Reese MD LAB BLOOD ORDERABLES Final Res ult KARRI ACOSTA [facility] [place] [address] * (ABNORMAL) CBC with auto differential (12/23/2024 8:34 AM CDT) [facility] WBC 8.18 3.80 - 9.90 K/cumm Comment:Testing performed by : [facility], [address] [place] [address] Hgb 16.3 13.0 - 17.5 g/dL KARRI ACOSTA Comment:Testing performed by : [facility], [address] [place] [address] Hct 49.5 38.9 - 50.3 % CERSTEVE ACOSTA Comment:Testing performed by : [facility], [address] [place] [address] Plt 240 150 - 400 K/cumm KARRI ACOSTA Comment:Testing performed by : [facility], [address] [place] [address] MPV 7.3 6.8 - 10.4 fL KARRI ACOSTA Comment:Testing performed by : [facility], [address] [place] [address] RBC 5.11 4.30 - 5.80 M/cumm KARRI BJ Comment:Testing performed by : [facility], [address] [place] [address] MCV 96.9(H) 81.3 - 96.4 fL KARRI ACOSTA Comment:Testing performed by : [facility], [address] [place] [address] MCH 31.9 27.1 - 33.3 pg CERSTEVE ACOSTA Comment:Testing performed by : [facility], [address] [place] [phone] MCHC 32.9 32.3 - 35.7 g/dL KARRI [facility] Comment:Testing performed by : [facility], [address] [place], [place] [phone] RDW CV 15.4(H) 11.1 - 14.9 % KARRI ACOSTA Comment:Testing performed by : [facility], [address] [place] [phone] NRBC abs 0.00 0.00 - 0.01 K/cumm KARRI [facility] Comment:Testing performed by : [facility], [address] [place] [phone] Blood 12/23/2024 8:34 AM CDT 12/23/2024 8:43 AM CDT Asael Reese MD LAB BLOOD ORDERABLES Final Res ult Performing Organization Address City/[facility] Co de Phone Number [facility] [place] [address] * T4, free (12/23/2024 8:34 AM CDT) Pathologist [facility] Free T4 1.02 0.90 - 1.70 ng/dL Blood 12/23/2024 8:34 AM CDT 12/23/2024 8:45 AM CDT Narrative KARRI [facility] - 12/23/2024 9:47 AM CDT This test was reflexed from a TSH result. Asael Reese MD LAB BLOOD ORDERABLES Final Res ult [facility] [place] [address] * Lactate dehydrogenase (LD) (12/23/2024 8:34 AM CDT) Pathologist [facility] Lactate dehydrogenase (LDH) 223 100 - 250 Units/L Blood 12/23/2024 8:34 AM CDT 12/23/2024 8:45 AM CDT us Asael Reese MD LAB BLOOD ORDERABLES Final Res ult [facility] Department [place] [address] * (ABNORMAL) Comprehensive metabolic panel (12/23/2024 8:34 AM CDT) Pathologist [facility] Sodium 141 135 - 145 mmol/L Potassium, pl 5.3(H) 3.3 - 4.9 mmol/L [facility] Chloride 106 97 - 110 mmol/L [facility] CO2 27 22 - 32 mmol/L [facility] Anion gap 8 2 - 15 mmol/L [facility] BUN 20 6 - 25 mg/dL [facility] Creatinine 1.34(H) 0.80 - 1.30 mg/dL [facility] Glucose 96 70 - 199 mg/dL [facility] Comment: Interpretive Data Fasting glucose >/= 126 mg/dl is diagnostic for diabetes. Fasting is defined as no caloric intake for at least 8 hours. Fasting glucose between 100 mg/dl to 125 mg/dl is diagnostic of prediabetes. In a patient with classic symptoms of hyperglycemia or hyperglycemic crisis, a random glucose >/= 200 mg/dl is diagnostic for diabetes. In the absence of unequivocal hyperglycemia, results should be confirmed by repeat testing. The classification and Diagnosis of Diabetes Diabetes Care 202; 46: S19-S40. Current interpretive data was last revised 2022. Calcium 9.9 8.5 - 10.3 mg/dL [facility] Bilirubin, total 0.9 0.1 - 1.2 mg/dL [facility] Protein, pl 8.0 6.5 - 8.5 g/dL [facility] Albumin 4.0 3.5 - 5.0 g/dL [facility] Alk phos 114 40 - 130 Units/L [facility] ALT 8 7 - 55 Units/L [facility] AST 24 10 - 50 Units/L [facility] Comment:Hemolyzed; result ma y be falsely elevated Blood 12/23/2024 8:34 AM CDT 12/23/2024 8:45 AM CDT us Asael Reese MD LAB BLOOD ORDERABLES Final Res ult [facility]RI [facility] [place] [address] * CT Head Neck Soft Tissue W Contrast (12/12/2024 11:44 AM CDT) Anatomical Region Laterality Modality Head and Neck N/A Computed Tomogra phy 12/12/2024 4:35 PM CDT Impressions 12/12/2024 5:56 PM CDT 1. Multiple foci of skin thickening, as described above. Recommend correlation with direct examinations. 2. No intracranial metastatic disease. 3. Left parotidectomy changes without cervical lymphadenopathy. 4. Please see dedicated CT chest, abdomen, and pelvis for evaluation of the thorax Dictated by: King Doan MD The radiology attending physician has personally reviewed this study, and had reviewed and/or edited this written report and agrees with it. Electronically signed by: Willie Anders MD, PHD Narrative 12/12/2024 5:56 PM CDT EXAMINATION: 1. CT head with contrast 2. 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 He was most recently on pembrolizumab with cycle 30 on 08/19/2024. TECHNIQUE: CT of the head was performed with images acquired from skull base to vertex with intravenous contrast. CT of the neck was performed according to the standard protocol with intravenous contrast. Contrast information: 114 mL Optiray-350 IV COMPARISON: CT head and neck 08/15/2024. FINDINGS: HEAD: Postsurgical changes of left scalp resection with skin thickening overlying the left parietal and frontal scalp. There are multiple foci of skin thickening, referenced with arrows on series 25. 1. Left parietal scalp, image 53 2. Left frontal scalp, image 52 3. Left frontoparietal scalp, image 43 4. Left parietal scalp, image 36 5. Left frontal scalp, image 30 6. Right frontal scalp, 2 lesions, image 24 7. Right frontal scalp, image 22 There is no acute intracranial hemorrhage, within the limitations of contrast. Global parenchymal volume loss with ex vacuo dilatation of the ventricular system, similar to prior. No mass effect or midline shift is present. Ill-defined periventricular white matter hypodensities, likely sequelae of chronic small vessel disease. The fuentes-white matter differentiation is normal. Bilateral lens replacements. Stable left mastoid effusion. Mucosal thickening of the right greater than left maxillary sinuses. No fractures are identified. There is no abnormal contrast enhancement. Intracranial atherosclerotic disease. NECK: Streak artifacts limits evaluation of the anterior mouth. Postsurgical changes of left cervical neck dissection and left parotidectomy. No suspicious enhancement to suggest disease recurrence in the neck. Scattered subcentimeter lymph nodes are seen in the neck. None are pathologically enlarged or abnormally enhancing. The muscles of the neck are normal. Bilateral carotid bulb calcified and noncalcified atherosclerosis. Scattered atherosclerosis of the thoracic aorta and branch vessels. Fascial planes are preserved and the deep spaces of the neck are normal. The visualized airway is widely patent. The base of the skull and the temporal bones are normal. The visualized portions of the orbits are normal. Multilevel degenerative disc and joint disease of the cervical spine. No high-grade spinal canal stenosis. Please see concurrently acquired dedicated CT chest, abdomen, and pelvis for evaluation of the thorax. Procedure Note Willie Anders MD PhD - 12/12/2024 EXAMINATION: 1. CT head with contrast 2. 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 He was most recently on pembrolizumab with cycle 30 on 08/19/2024. TECHNIQUE: CT of the head was performed with images acquired from skull base to vertex with intravenous contrast. CT of the neck was performed according to the standard protocol with intravenous contrast. Contrast information: 114 mL Optiray-350 IV COMPARISON: CT head and neck 08/15/2024. FINDINGS: HEAD: Postsurgical changes of left scalp resection with skin thickening overlying the left parietal and frontal scalp. There are multiple foci of skin thickening, referenced with arrows on series 25. 1. Left parietal scalp, image 53 2. Left frontal scalp, image 52 3. Left frontoparietal scalp, image 43 4. Left parietal scalp, image 36 5. Left frontal scalp, image 30 6. Right frontal scalp, 2 lesions, image 24 7. Right frontal scalp, image 22 There is no acute intracranial hemorrhage, within the limitations of contrast. Global parenchymal volume loss with ex vacuo dilatation of the ventricular system, similar to prior. No mass effect or midline shift is present. Ill-defined periventricular white matter hypodensities, likely sequelae of chronic small vessel disease. The fuentes-white matter differentiation is normal. Bilateral lens replacements. Stable left mastoid effusion. Mucosal thickening of the right greater than left maxillary sinuses. No fractures are identified. There is no abnormal contrast enhancement. Intracranial atherosclerotic disease. NECK: Streak artifacts limits evaluation of the anterior mouth. Postsurgical changes of left cervical neck dissection and left parotidectomy. No suspicious enhancement to suggest disease recurrence in the neck. Scattered subcentimeter lymph nodes are seen in the neck. None are pathologically enlarged or abnormally enhancing. The muscles of the neck are normal. Bilateral carotid bulb calcified and noncalcified atherosclerosis. Scattered atherosclerosis of the thoracic aorta and branch vessels. Fascial planes are preserved and the deep spaces of the neck are normal. The visualized airway is widely patent. The base of the skull and the temporal bones are normal. The visualized portions of the orbits are normal. Multilevel degenerative disc and joint disease of the cervical spine. No high-grade spinal canal stenosis. Please see concurrently acquired dedicated CT chest, abdomen, and pelvis for evaluation of the thorax. IMPRESSION: 1. Multiple foci of skin thickening, as described above. Recommend correlation with direct examinations. 2. No intracranial metastatic disease. 3. Left parotidectomy changes without cervical lymphadenopathy. 4. Please see dedicated CT chest, abdomen, and pelvis for evaluation of the thorax Dictated by: King Doan MD The radiology attending physician has personally reviewed this study, and had reviewed and/or edited this written report and agrees with it. Electronically signed by: Willie Anders MD, PHD Asael Reese MD IM CT PROCEDURES Final Result * CT Chest Abdomen Pelvis W Contrast (12/12/2024 11:44 AM CDT) Anatomical Region Laterality Modality Body N/A Computed Tomogra phy 12/12/2024 12:0 1 PM CDT Impressions 12/12/2024 12:01 PM CDT 1. No definite evidence of metastatic disease. Stable small indeterminate pulmonary nodules. 2. Resolution of lower lobe aspiration with persistent lower lobe bronchiectasis consistent with sequela of chronic aspiration. 3. Tiny focus of enhancement in the uncinate process of the pancreas that connects to the gastroduodenal artery; this is likely a prominent branch vessel although a tiny neuroendocrine tumor could have a similar appearance. Electronically signed by: Demetrio Monk M.D. Narrative 12/12/2024 12:01 PM CDT EXAMINATION: Computed tomography of the chest, abdomen and pelvis with intravenous contrast HISTORY: Squamous cell carcinoma of the scalp TECHNIQUE: Transaxial computed tomographic images of the chest, abdomen and pelvis were obtained with intravenous contrast according to the standard protocol after the administration of 114 mL Opti-Ray 350 intravenous contrast. COMPARISON: 08/15/2024 FINDINGS: No supraclavicular or axillary lymphadenopathy. No mediastinal or hilar lymphadenopathy. Heart size is notable for enlarged right atrium. There are coronary calcifications. There is a small hiatal hernia. There are some small stable indeterminate pulmonary nodules. For example, a 5 mm probable intrapulmonary lymph node along the right minor fissure at scanner position -1158.8. There is also a stable 5 mm nodule in the left lower lobe at scanner position -1296.8. No definite new or enlarging pulmonary nodules or masses. There has been marked interval improvement in bronchial wall thickening in the lower lobes, right greater than left with resolution of previously seen mucous plugging. There is some residual mild bronchiectasis. No intrahepatic lesions or biliary ductal dilatation. Gallbladder is normal. Portal and superior mesenteric veins are normal. The the right hepatic artery is replaced, arising from the superior mesenteric artery. Left hepatic artery is also replaced, arising from the left gastric artery. Spleen is normal. Tiny focus of enhancement in the uncinate process of the pancreas at scanner position -1380.8 is stable. This appears to connect to the gastroduodenal artery. No adrenal lesions. No renal lesions. No hydronephrosis. 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 No abdominal or pelvic lymphadenopathy. The bowel is normal in caliber without evidence of any focal wall thickening or obstruction. The appendix is normal. There is a fat-containing right inguinal hernia. Bone windows demonstrate no lytic or blastic lesions. Procedure Note Demetrio Monk MD - 12/12/2024 EXAMINATION: Computed tomography of the chest, abdomen and pelvis with intravenous contrast HISTORY: Squamous cell carcinoma of the scalp TECHNIQUE: Transaxial computed tomographic images of the chest, abdomen and pelvis were obtained with intravenous contrast according to the standard protocol after the administration of 114 mL Opti-Ray 350 intravenous contrast. COMPARISON: 08/15/2024 FINDINGS: No supraclavicular or axillary lymphadenopathy. No mediastinal or hilar lymphadenopathy. Heart size is notable for enlarged right atrium. There are coronary calcifications. There is a small hiatal hernia. There are some small stable indeterminate pulmonary nodules. For example, a 5 mm probable intrapulmonary lymph node along the right minor fissure at scanner position -1158.8. There is also a stable 5 mm nodule in the left lower lobe at scanner position -1296.8. No definite new or enlarging pulmonary nodules or masses. There has been marked interval improvement in bronchial wall thickening in the lower lobes, right greater than left with resolution of previously seen mucous plugging. There is some residual mild bronchiectasis. No intrahepatic lesions or biliary ductal dilatation. Gallbladder is normal. Portal and superior mesenteric veins are normal. The the right hepatic artery is replaced, arising from the superior mesenteric artery. Left hepatic artery is also replaced, arising from the left gastric artery. Spleen is normal. Tiny focus of enhancement in the uncinate process of the pancreas at scanner position -1380.8 is stable. This appears to connect to the gastroduodenal artery. No adrenal lesions. No renal lesions. No hydronephrosis. 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 No abdominal or pelvic lymphadenopathy. The bowel is normal in caliber without evidence of any focal wall thickening or obstruction. The appendix is normal. There is a fat-containing right inguinal hernia. Bone windows demonstrate no lytic or blastic lesions. IMPRESSION: 1. No definite evidence of metastatic disease. Stable small indeterminate pulmonary nodules. 2. Resolution of lower lobe aspiration with persistent lower lobe bronchiectasis consistent with sequela of chronic aspiration. 3. Tiny focus of enhancement in the uncinate process of the pancreas that connects to the gastroduodenal artery; this is likely a prominent branch vessel although a tiny neuroendocrine tumor could have a similar appearance. Electronically signed by: Demetrio Monk M.D. 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 Relationship Specialty Start Date End Date Christine Sanford MD PCP - General 08/28/14 Solomon Varner MD Consulting Physician Cardiology 04/01/20 Richy Benjamin MD PhD Consulting Physician Radiation Oncology 04/15/20 Jose Gómez MD [address] [place] [address] Periodicals Clerk Plastic Surgery 12/08/21 Christine Hennessy LPN [address] [place] [address] Periodicals Clerk Plastic Surgery 12/08/21 Sharlene Gleason MD [address] [place] [address] Referring Physician Dermatology 06/05/23 Too Harrell MD [address] [address] Referring Physician Dermatology 06/26/23
--- OUTSIDE RECORDS SUMMARY | 2025-02-03 13:40 | XMS_ITS | Clinical Summary ---
Author Organization [facility] Address [address] [place] [id number] Phone Care Team Providers Care Referral And Information Aide Name Role Phone Christine Sanford MD Primary Care Provider [phone] Allergies No known active allergies Medications apixaban (ELIQUIS) 5 MG tablet 1 tablet (5 mg) orally 2 times per day 0 7 Active simvastatin (ZOCOR) 20 MG tablet 1 tablet (20 mg) orally daily in the evening 0 7 Active FLUZONE HIGH-DOSE 0.5 ML suspension prefilled syringe TO BE ADMINISTERED BY PHARMACIST FOR IMMUNIZATION 0 9 Active cholecalciferol (D3-1000) 1000 units capsule Take 1,000 Units by mouth daily Active Active Problems Problem Noted Date Diagnosed Date 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 Vitamin D deficiency 05/08/2017 Stage 3b chronic kidney disease 05/08/2017 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 H/O: major vascular surgery 07/04/2016 Overview (12/01/2018): S/P repair of abdominal aortic aneurysm using straight graft Urinary tract infection 2016 Hyperkalemia 01/04/2016 Dyslipidemia 01/04/2016 Atrial fibrillation 01/04/2016 Immunizations Immunization Administration Dates Next Due Influenza TIV (IM) 12/18/2021,11/04/2020, 020 Pneumococcal Conjugate 11/12/2018 Family History Medical History Relation Comments Kidney disease Father Relation Status Comments Father Social History Tobacco Use Types Packs/Day Years Used Date Smoking Tobacco: Former Smokeless Tobacco: Never Alcohol Use Standard Drinks/Week Comments Not Currently 0 (1 standard drink = 0.6 oz pur e alcohol) Sex and Gender Information Value Date Recorded Sex Assigned at Not on file Legal Sex Male 9:20 AM [facility] Gender Identity Not on file Sexual Orientation Not on file Last Filed Vital Signs Vital Sign Reading Time Taken Comments Blood Pressure 106/70 02/23/2022 9:12 AM [facility] Pulse 72 02/23/2022 9:12 AM [facility] Temperature 36.1 C (97 F) 02/23/2022 9:12 AM [facility] Respiratory Rate - - Oxygen Saturation - - Inhaled Oxygen Concentration - - Weight 89.8 kg (198 lb) 02/23/2022 9:12 AM [facility] Height 175.3 cm (5' 9) 02/23/2022 9:12 AM [facility] Body Mass Index 29.24 02/23/2022 9:12 AM [facility] Plan of Treatment Health Maintenance Due Date Last Done Comments Pneumococcal PPSV23/PCV13 65 + Years / Low and Medium Risk (1 of 2 - PCV) 1986 Influenza Vaccine (#1) 2024 2, 11/04/2020, 11/13/2019 Insurance MEDICARE AET Care Teams Referral And Information Aide Relationship Specialty Start Date End Date Christine Sanford MD [address] [place] [id number] PCP - General Internal Medicine 12/05/18
== END 2025-02-03 13:45 | disposition home or self-care (01) ==
PROVIDERS: Emergency Provider Emergency Medicine; PCP Family Medicine Adolescent Medicine
DX: S01.81XA Laceration without foreign body of other part of head, initial encounter (principal); I48.91 Unspecified atrial fibrillation; E78.5 Hyperlipidemia, unspecified; Z85.828 Personal history of other malignant neoplasm of skin; Z79.01 Long term (current) use of anticoagulants; W01.0XXA Fall on same level from slipping, tripping and stumbling without subsequent striking against object, initial encounter; Z23 Encounter for immunization
CPT/HCPCS: 12011; 70450; 72125; 90471; 90715; 99284